=== PATIENT | female | born 1960 | race Caucasian/White ===

== ENCOUNTER 2016-12-16 00:49 | Emergency (ER) | payer OTHER ==
[~2016-12-16] VITALS: Ht 160 cm; Wt 86.2 kg
[~2016-12-16 00:49] MED LIST: CYCL-259 PO; ERGO500017 PO; ESTR0.5T PO; FOLIC ACID PO; OSTEOPOROSIS MED PO; SOLI5TAB2 PO; THYR30TA PO; VENL150C PO; VITA1CAP PO; cranberry PO
[2016-12-16 00:56] VITALS: BP 146/95
[2016-12-16] MEDS ORDERED: PHENAZOPYRIDINE 200 MG TABLET PO ONE (01:00)
[2016-12-16] MEDS ORDERED: CEFTRIAXONE 1,000 MG IM ONE (01:00)
[2016-12-16] MEDS ORDERED: FLUO40CA9 PO (01:06)
[2016-12-16] MEDS ORDERED: PHENAZOPYRIDINE 200 MG TABLET ONE (01:08)
[2016-12-16] MEDS ORDERED: CEFTRIAXONE 1,000 MG ONE (01:09)
== END 2016-12-16 01:24 | disposition home or self-care (01) ==
LOC: ED 00:57
DX: N30.00 Acute cystitis without hematuria (principal); F32.9 Major depressive disorder, single episode, unspecified; E07.9 Disorder of thyroid, unspecified; Z90.710 Acquired absence of both cervix and uterus; Z98.890 Other specified postprocedural states; Z90.49 Acquired absence of other specified parts of digestive tract
CPT/HCPCS: 81001; 87077; 87086; 87186; 96372; 99284; J0696

== ENCOUNTER → 2017-01-23 | Outpatient (CLI) | payer OTHER ==
[~2017-01-23] MED LIST changes: +FLUO40CA9 PO; +LIDOCAINE 1%, 20ML ONE; +MULTIHANCE 529 MG/ML, 5ML IV ONE; +OMNIPAQUE 300 MG/ML, 10ML VIAL ONE
== END | disposition home or self-care (01) ==
LOC: CFH 09:18
PROVIDERS: ATTEND Orthopaedic Surgery
DX: M25.451 Effusion, right hip (principal); M76.9 Unspecified enthesopathy, lower limb, excluding foot; N81.84 Pelvic muscle wasting; M24.151 Other articular cartilage disorders, right hip; Z98.890 Other specified postprocedural states
CPT/HCPCS: 73525; 73722; A9577; J3490; Q9967

== ENCOUNTER 2017-02-24 16:28 | Emergency (ER) | payer OTHER ==
[~2017-02-24] VITALS: Ht 160 cm; Wt 90.4 kg
[~2017-02-24 16:28] MED LIST changes: -LIDOCAINE 1%, 20ML ONE; -MULTIHANCE 529 MG/ML, 5ML IV ONE; -OMNIPAQUE 300 MG/ML, 10ML VIAL ONE
[2017-02-24] MEDS ORDERED: SODIUM CHLORIDE FLUSH 10ML SYR IVF ONE (17:00)
[2017-02-24 17:22] LABS: HEMATOCRIT 38.3 % (34.6-47.8); HEMOGLOBIN 12.8 g/dL (11.7-16.4); WHITE BLOOD COUNT 4.7 x10^3/uL (3.4-10)
[2017-02-24 17:32] LABS: ASPARTATE AMINO TRANSFERASE 22 U/L (15-37); BLOOD UREA NITROGEN 24 mg/dL (7-18)
[2017-02-24 17:38] LABS: IS PT STATUS REG ER OR PRE ER? YES
[2017-02-24] MEDS ORDERED: MAALOX/HYOSCYAMINE/LIDOCAINE 45 ML BTL ONE (19:00)
[2017-02-24] MEDS ORDERED: MAALOX/HYOSCYAMINE/LIDOCAINE 45 ML BTL PO ONE (19:00)
[2017-02-24 19:31] LABS: IS PT STATUS REG ER OR PRE ER? YES
[2017-02-24 20:03] VITALS: BP 140/97
== END 2017-02-24 20:05 | disposition home or self-care (01) ==
LOC: ED 19:59
DX: R07.89 Other chest pain (principal); Z90.710 Acquired absence of both cervix and uterus; Z90.49 Acquired absence of other specified parts of digestive tract; Z98.890 Other specified postprocedural states
CPT/HCPCS: 36415; 71010; 80053; 83690; 84484; 85025; 85610; 93005; 99285

== ENCOUNTER 2017-03-10 06:26 | Emergency (ER) | payer OTHER ==
[~2017-03-10] VITALS: Ht 160 cm; Wt 90.5 kg
[2017-03-10] MEDS ORDERED: SODIUM CHLORIDE 0.9% 1,000ML IVBOLUS ONE (07:00)
[2017-03-10] MEDS ORDERED: ENALAPRILAT 1.25 MG/ML, 2ML IV ONE (07:00)
[2017-03-10] MEDS ORDERED: SODIUM CHLORIDE FLUSH 10ML SYR IVF ONE (07:00)
[2017-03-10] MEDS ORDERED: NITR25CA2 PO (07:11)
[2017-03-10] MEDS ORDERED: UBID30CA9 PO (07:12)
[2017-03-10] MEDS ORDERED: ENALAPRILAT 1.25 MG/ML, 2ML ONE (07:21)
[2017-03-10 07:26] LABS: HEMATOCRIT 38.4 % (34.6-47.8); HEMOGLOBIN 12.6 g/dL (11.7-16.4); WHITE BLOOD COUNT 5.2 x10^3/uL (3.4-10)
[2017-03-10 07:40] LABS: BLOOD UREA NITROGEN 15 mg/dL (7-18)
[2017-03-10 07:46] LABS: IS PT STATUS REG ER OR PRE ER? YES
[2017-03-10] MEDS ORDERED: hydrALAzine 20 MG/ML, 1ML IV ONE (08:00)
[2017-03-10 08:08] VITALS: BP 166/89
[2017-03-10] MEDS ORDERED: KETOROLAC 30 MG/1 ML ONE (08:50)
[2017-03-10] MEDS ORDERED: KETOROLAC 30 MG/1 ML IVPush ONE (09:00)
[2017-03-10] MEDS ORDERED: ACETAMINOPHEN 650 MG/20.3 ML UDC ONE (14:20)
== END 2017-03-10 09:35 | disposition home or self-care (01) ==
LOC: ED 07:00
DX: I10 Essential (primary) hypertension (principal); F32.9 Major depressive disorder, single episode, unspecified
CPT/HCPCS: 36415; 80048; 82040; 84439; 84443; 84484; 85025; 93005; 96361; 96374; 96375; 99285; J1885; J7030

== ENCOUNTER 2017-03-25 01:45 | Emergency (ER) | payer OTHER ==
[~2017-03-25] VITALS: Ht 167.6 cm; Wt 85.0 kg
[~2017-03-25 01:45] MED LIST changes: +NITR25CA2 PO; +UBID30CA9 PO
[2017-03-25 02:05] VITALS: BP 158/113
[2017-03-25 02:21] LABS: HEMATOCRIT 35.3 % (34.6-47.8); HEMOGLOBIN 11.7 g/dL (11.7-16.4); WHITE BLOOD COUNT 5.7 x10^3/uL (3.4-10)
[2017-03-25 02:31] LABS: ASPARTATE AMINO TRANSFERASE 28 U/L (15-37); BLOOD UREA NITROGEN 25 mg/dL (7-18)
[2017-03-25 02:45] LABS: HIV 1&2 ANTIBODY SCREEN Nonreactive (Nonreactive); HIV-1 p24 ANTIGEN Nonreactive (Nonreactive)
[2017-03-25 10:25] LABS: HEP B SURF. AB 53.8 mIU/mL (0.0-10.0)
== END 2017-03-25 03:04 | disposition home or self-care (01) ==
LOC: ED 02:15
DX: Z77.21 Contact with and (suspected) exposure to potentially hazardous body fluids (principal); I10 Essential (primary) hypertension; Z90.49 Acquired absence of other specified parts of digestive tract; Z90.710 Acquired absence of both cervix and uterus
CPT/HCPCS: 36415; 80053; 85025; 86703; 86706; 86803; 87899; 99284; G0435

== ENCOUNTER → 2017-04-01 | Outpatient (CLI) | payer OTHER ==
[2017-04-01 07:44] LABS: BLOOD UREA NITROGEN 20 mg/dL (7-18)
[2017-04-01 08:09] LABS: ASPARTATE AMINO TRANSFERASE 19 U/L (15-37)
== END | disposition home or self-care (01) ==
LOC: LAB 07:18
PROVIDERS: ATTEND Family Medicine
DX: I10 Essential (primary) hypertension (principal); N28.9 Disorder of kidney and ureter, unspecified
CPT/HCPCS: 36415; 80053; 82607; 82746; 84439; 84443; 84481

== ENCOUNTER → 2017-05-02 | Outpatient (CLI) | payer OTHER ==
[~2017-05-02] MED LIST changes: +LISI-167 PO
== END ==
LOC: STAR 10:50
PROVIDERS: ATTEND Orthopaedic Surgery
DX: Z02.9 Encounter for administrative examinations, unspecified (principal)

== ENCOUNTER 2017-05-08 10:17 | Day surgery (SDC) | payer OTHER ==
[~2017-05-08] VITALS: Ht 160 cm; Wt 87.7 kg
[2017-05-08] MEDS ORDERED: ROPIvacaine/PF 0.5%, 30 ML ONE (10:24)
[2017-05-08] MEDS ORDERED: EPINEPHRINE TOPICAL SOLN 1 MG/ML, 30ML ONE (10:24)
[2017-05-08 10:43] VITALS: BP 132/87
[2017-05-08] MEDS ORDERED: TYLENOL PO (10:50)
[2017-05-08] MEDS ORDERED: LACTATED RINGERS 1,000 ML IV SCH (11:11)
[2017-05-08] MEDS ORDERED: FENTANYL PF 250 MCG/5ML ONE (11:28)
[2017-05-08] MEDS ORDERED: MIDAZOLAM 1 MG/ML, 2ML ONE (11:29)
[2017-05-08] MEDS ORDERED: PROPOFOL 50 ML ONE (11:33)
[2017-05-08] MEDS ORDERED: NEOSTIGMINE 1 MG/ML, 10ML ONE (12:23)
[2017-05-08] MEDS ORDERED: ROCURONIUM 10 MG/ML,10ML ONE (12:23)
[2017-05-08] MEDS ORDERED: GLYCOPYRROLATE 0.2MG/1ML, 5ML ONE (12:23)
[2017-05-08] MEDS ORDERED: PROPOFOL 10 MG/ML, 20ML ONE (12:29)
[2017-05-08] MEDS ORDERED: CEFAZOLIN 1,000 MG ONE (12:29)
[2017-05-08] MEDS ORDERED: DEXAMETHASONE 4 MG/ML, 1ML ONE (12:29)
[2017-05-08] MEDS ORDERED: ONDANSETRON 2MG/ML, 2ML ONE ×2 (12:29→14:04)
[2017-05-08] MEDS ORDERED: OXYcodone 5 MG/5 ML ORAL.SOL UDC PO PRN (12:30)
[2017-05-08] MEDS ORDERED: ONDANSETRON 2MG/ML, 2ML IVPush PRN (12:30)
[2017-05-08] MEDS ORDERED: ACETAMINOPHEN 325 MG TABLET PO PRN (12:30)
[2017-05-08] MEDS ORDERED: HYDROcodone/APAP 7.5-325MG/15ML UDC PO PRN (12:30)
[2017-05-08] MEDS ORDERED: ROPIvacaine/PF 0.5%, 30 ML INFIL ONE (13:03)
[2017-05-08] MEDS ORDERED: OXYcodone 5 MG/5 ML ORAL.SOL UDC ONE (13:43)
[2017-05-08] MEDS ORDERED: ACETAMINOPHEN 650 MG/20.3 ML UDC ONE (13:43)
[2017-05-08] MEDS ORDERED: FENTANYL PF 100 MCG/2ML ONE (13:45)
[2017-05-08] MEDS: FENTANYL PF 100 MCG/2ML IV PRN ×3 (13:46→14:02)
[2017-05-08] MEDS ORDERED: HYDROmorphone 2 MG/ML, 1ML ONE (13:54)
[2017-05-08] MEDS: HYDROmorphone 1 MG/ML, 1ML IV PRN ×3 (13:56→14:29)
[2017-05-08] MEDS ORDERED: MEPERIDINE/PF 50 MG/ML ONE (14:04)
[2017-05-08] MEDS ORDERED: MEPERIDINE/PF 25MG/0.5ML IVPush PRN (14:30)
== END 2017-05-08 15:45 | disposition home or self-care (01) ==
LOC: OUT 10:17
PROVIDERS: ATTEND Orthopaedic Surgery
DX: S73.191A Other sprain of right hip, initial encounter (principal); X58.XXXA Exposure to other specified factors, initial encounter; Y93.89 Activity, other specified; Y92.89 Other specified places as the place of occurrence of the external cause; Y99.8 Other external cause status
CPT/HCPCS: 29914; 73501; 76000; J0690; J1100; J1170; J2175; J2250; J2405; J2704; J2710; J2795; J3010; J7120; J0171; J3490

== ENCOUNTER → 2017-09-29 | Outpatient (CLI) | payer OTHER ==
[~2017-09-29] MED LIST changes: +TYLENOL PO
[2017-09-29 07:19] LABS: BASOPHILS # (AUTO) 0.05 x10^3/uL (0-0.1); BASOPHILS % (AUTO) 1 % (0-1); EOSINOPHILS # (AUTO) 0.05 x10^3/uL (0-0.4); EOSINOPHILS % (AUTO) 1 % (1-7); LYMPHOCYTES # (AUTO) 2.33 x10^3/uL (1-3.4); LYMPHOCYTES % (AUTO) 38 % (22-44); MD NO; MEAN CORPUSCULAR HEMOGLOBIN 25.9 pg (27.0-34.8); MEAN CORPUSCULAR HGB CONC 32.8 g/dL (32.4-35.8); MEAN PLATELET VOLUME 8.3 fL (7.4-10.4); MONOCYTES # (AUTO) 0.48 x10^3/uL (0.2-0.8); MONOCYTES % (AUTO) 8 % (2-9); NEUTROPHILS # (AUTO) 3.28 x10^3/uL (1.8-6.8); NEUTROPHILS % (AUTO) 53 % (42-75); PLATELET COUNT 222 x10^3/uL (130-400); RED BLOOD COUNT 4.48 x10^6/uL (3.82-5.3); RED CELL DISTRIBUTION WIDTH 13.8 % (9.6-15.2)
[2017-09-29 07:31] LABS: ALANINE AMINOTRANSFERASE 33 U/L (12-78); ALBUMIN 3.6 g/dL (3.4-5.0); ANION GAP 8 mmol/L (5-15); CALCIUM 8.3 mg/dL (8.5-10.1); CHLORIDE 104 mmol/L (98-107); CHOLESTEROL, TOTAL 238 mg/dL (140-239); CREATININE 1.07 mg/dL (0.55-1.02); HIGH-SENSITIVITY CRP 0.25 mg/dL (0.02-0.30)
[2017-09-29 07:42] LABS: ALKALINE PHOSPHATASE 100 U/L (45-117); BILIRUBIN,TOTAL 0.3 mg/dL (0.2-1.0); CHOL/HDL RATIO 2.9; FREE T4 (FREE THYROXINE) 0.91 ng/dL (0.76-1.46); HDL CHOL % 35 % (28-40); HDL CHOLESTEROL (DIRECT) 83 mg/dL (40-60); LDL CHOLESTEROL,CALCULATED 141 mg/dL (54-169); LDL/HDL RATIO 1.7 (0.5-3.0); THYROID STIMULATING HORMONE 0.826 mIU/L (0.358-3.740); TOTAL PROTEIN 7.4 g/dL (6.4-8.2); TRIGLYCERIDES 71 mg/dL (50-200); VLDL CHOLESTEROL 14 mg/dL (0-25)
== END | disposition home or self-care (01) ==
LOC: LAB 07:02
PROVIDERS: ATTEND Nurse Practitioner Family
DX: I10 Essential (primary) hypertension (principal); E78.5 Hyperlipidemia, unspecified; E03.9 Hypothyroidism, unspecified
CPT/HCPCS: 36415; 80053; 80061; 82043; 84439; 84443; 84481; 85025; 86141

== ENCOUNTER → 2018-05-08 | Outpatient (CLI) | payer OTHER ==
[2018-05-08 07:43] LABS: BASOPHILS # (AUTO) 0.05 x10^3/uL (0-0.1); BASOPHILS % (AUTO) 1 % (0-1); EOSINOPHILS # (AUTO) 0.42 x10^3/uL (0-0.4); EOSINOPHILS % (AUTO) 7 % (1-7); LYMPHOCYTES # (AUTO) 2.17 x10^3/uL (1-3.4); LYMPHOCYTES % (AUTO) 37 % (22-44); MD NO; MEAN CORPUSCULAR HEMOGLOBIN 24.5 pg (27.0-34.8); MEAN CORPUSCULAR HGB CONC 32.3 g/dL (32.4-35.8); MEAN PLATELET VOLUME 8.4 fL (7.4-10.4); MONOCYTES # (AUTO) 0.42 x10^3/uL (0.2-0.8); MONOCYTES % (AUTO) 7 % (2-9); NEUTROPHILS # (AUTO) 2.84 x10^3/uL (1.8-6.8); NEUTROPHILS % (AUTO) 48 % (42-75); PLATELET COUNT 260 x10^3/uL (130-400); RED BLOOD COUNT 4.86 x10^6/uL (3.82-5.3)
[2018-05-08 07:54] LABS: ALBUMIN 3.5 g/dL (3.4-5.0); ANION GAP 8 mmol/L (5-15); CALCIUM 8.6 mg/dL (8.5-10.1); CHLORIDE 104 mmol/L (98-107)
[2018-05-08 08:05] LABS: ALANINE AMINOTRANSFERASE 26 U/L (12-78); ALKALINE PHOSPHATASE 94 U/L (45-117); BILIRUBIN,TOTAL 0.4 mg/dL (0.2-1.0); CHOL/HDL RATIO 2.7; CHOLESTEROL, TOTAL 246 mg/dL (140-239); CREATININE 1.03 mg/dL (0.55-1.02); FREE T4 (FREE THYROXINE) 0.92 ng/dL (0.76-1.46); HDL CHOL % 37 % (28-40); HDL CHOLESTEROL (DIRECT) 91 mg/dL (40-60); HIGH-SENSITIVITY CRP 0.34 mg/dL (0.02-0.30); LDL CHOLESTEROL,CALCULATED 138 mg/dL (54-169); LDL/HDL RATIO 1.5 (0.5-3.0); THYROID STIMULATING HORMONE 0.977 mIU/L (0.358-3.740); TRIGLYCERIDES 87 mg/dL (50-200); VLDL CHOLESTEROL 17 mg/dL (0-25)
[2018-05-08 13:45] LABS: % IRON SATURATION 12 % (20-55); IRON LEVEL 55 mcg/dL (50-170); TOTAL IRON BINDING CAPACITY 474 mcg/dL (250-450)
== END | disposition home or self-care (01) ==
LOC: LAB 07:24
PROVIDERS: ATTEND Nurse Practitioner Family
DX: E78.5 Hyperlipidemia, unspecified (principal); I10 Essential (primary) hypertension; E03.9 Hypothyroidism, unspecified
CPT/HCPCS: 36415; 80053; 80061; 82043; 83540; 83550; 84439; 84443; 84481; 85025; 86141

== ENCOUNTER → 2019-04-27 | Outpatient (CLI) | payer OTHER ==
[2019-04-27 07:28] LABS: BASOPHILS # (AUTO) 0.04 x10^3/uL (0-0.1); BASOPHILS % (AUTO) 1 % (0-1); EOSINOPHILS # (AUTO) 0.07 x10^3/uL (0-0.4); EOSINOPHILS % (AUTO) 2 % (1-7); LYMPHOCYTES # (AUTO) 1.99 x10^3/uL (1-3.4); LYMPHOCYTES % (AUTO) 39 % (22-44); MD NO; MEAN CORPUSCULAR HEMOGLOBIN 25.3 pg (27.0-34.8); MEAN CORPUSCULAR HGB CONC 32.5 g/dL (32.4-35.8); MEAN CORPUSCULAR VOLUME 77.9 fL (80-100); MONOCYTES % (AUTO) 8 % (2-9); NEUTROPHILS % (AUTO) 51 % (42-75); PLATELET COUNT 210 x10^3/uL (130-400); RED BLOOD COUNT 4.88 x10^6/uL (3.82-5.3); RED CELL DISTRIBUTION WIDTH 18.2 % (9.6-15.2)
[2019-04-27 07:34] LABS: ALBUMIN 3.6 g/dL (3.4-5.0); ANION GAP 4 mmol/L (5-15); CALCIUM 8.7 mg/dL (8.5-10.1); CHLORIDE 107 mmol/L (98-107); CHOLESTEROL, TOTAL 245 mg/dL (140-239)
[2019-04-27 07:45] LABS: % IRON SATURATION 17 % (20-55); ALANINE AMINOTRANSFERASE 41 U/L (12-78); ALKALINE PHOSPHATASE 92 U/L (45-117); BILIRUBIN,TOTAL 0.3 mg/dL (0.2-1.0); CHOL/HDL RATIO 2.8; CREATININE 1.11 mg/dL (0.55-1.02); FREE T4 (FREE THYROXINE) 0.92 ng/dL (0.76-1.46); HDL CHOL % 36 % (28-40); HDL CHOLESTEROL (DIRECT) 88 mg/dL (40-60); IRON LEVEL 80 mcg/dL (50-170); LDL CHOLESTEROL,CALCULATED 136 mg/dL (54-169); LDL/HDL RATIO 1.5 (0.5-3.0); TOTAL IRON BINDING CAPACITY 463 mcg/dL (250-450); TOTAL PROTEIN 7.4 g/dL (6.4-8.2); TRANSFERRIN 331 mg/dL (200-360); TRIGLYCERIDES 105 mg/dL (50-200); VLDL CHOLESTEROL 21 mg/dL (0-25)
== END | disposition home or self-care (01) ==
LOC: LAB 07:08
PROVIDERS: ATTEND Nurse Practitioner Family
DX: D64.9 Anemia, unspecified (principal); E78.5 Hyperlipidemia, unspecified; E03.9 Hypothyroidism, unspecified; R53.83 Other fatigue
CPT/HCPCS: 36415; 80053; 80061; 82728; 83540; 83550; 84439; 84443; 84466; 84481; 85025

== ENCOUNTER 2020-05-12 16:12 | Emergency (ER) | payer OTHER ==
[~2020-05-12] VITALS: Ht 160 cm; Wt 88.4 kg
[2020-05-12] MEDS ORDERED: SODIUM CHLORIDE FLUSH 10ML SYR IVF ONE (17:00)
[2020-05-12 17:02] LABS: BASOPHILS % (AUTO) 1 % (0-1); EOSINOPHILS % (AUTO) 1 % (1-7); LYMPHOCYTES % (AUTO) 33 % (22-44); MEAN CORPUSCULAR HEMOGLOBIN 27.3 pg (27.0-34.8); MEAN CORPUSCULAR HGB CONC 33.2 g/dL (32.4-35.8); MEAN PLATELET VOLUME 8.4 fL (7.4-10.4); MONOCYTES % (AUTO) 8 % (2-9); NEUTROPHILS % (AUTO) 58 % (42-75); PLATELET COUNT 188 x10^3/uL (130-400); RED BLOOD COUNT 4.78 x10^6/uL (3.82-5.3); RED CELL DISTRIBUTION WIDTH 14.2 % (9.6-15.2)
[2020-05-12 17:04] LABS: MD NO
[2020-05-12 17:12] LABS: ALANINE AMINOTRANSFERASE 36 U/L (12-78); ALBUMIN 3.4 g/dL (3.4-5.0); ANION GAP 5 mmol/L (5-15); CALCIUM 9.1 mg/dL (8.5-10.1); CHLORIDE 108 mmol/L (98-107); CREATININE 0.93 mg/dL (0.55-1.02)
[2020-05-12 17:14] LABS: ALKALINE PHOSPHATASE 103 U/L (45-117); BILIRUBIN,TOTAL 0.4 mg/dL (0.2-1.0); TOTAL PROTEIN 6.9 g/dL (6.4-8.2)
--- NOTE | 2020-05-12 17:20 | NUR ---
PT AMBULATORY TO ROOM 6 W/ C/O RLQ AND PAIN STARTED YESTERDAY. PT STATES HER APPENDIX IS STILL IN PLACE. STATES MILD NAUSEA AT THIS TIME NO EMESIS. PT STATES PAIN IS TOLERABLE AT THIS TIME. PT RESTING ON GURNEY. NADN. LOW.
[2020-05-12] MEDS ORDERED: OMNIPAQUE 350 MG/ML, 100ML BOTTLE ONE (17:36)
[2020-05-12] MEDS ORDERED: SODIUM CHLORIDE 0.9% 1,000 ML IV ONE (18:00)
[2020-05-12 18:09] LABS: MICROSCOPIC INDICATED
[2020-05-12 18:20] VITALS: BP 155/90
--- NOTE | 2020-05-12 18:20 | NUR ---
PT RESTING ON GURNEY. NADN. LOW.
[2020-05-12] MEDS ORDERED: CEFDINIR 300 MG CAPSULE ONE (18:45)
[2020-05-12] MEDS ORDERED: CEFDINIR 300 MG CAPSULE PO/NG ONE (19:00)
== END 2020-05-12 18:55 | disposition home or self-care (01) ==
LOC: ED 17:59
DX: N39.0 Urinary tract infection, site not specified (principal); R10.31 Right lower quadrant pain; L98.8 Other specified disorders of the skin and subcutaneous tissue; I10 Essential (primary) hypertension; E07.9 Disorder of thyroid, unspecified; Z90.49 Acquired absence of other specified parts of digestive tract
CPT/HCPCS: 36415; 74177; 80053; 81001; 85025; 87077; 87086; 96360; 99285; J7030; Q9967; 87186

== ENCOUNTER → 2020-06-13 | Outpatient (CLI) | payer OTHER ==
[~2020-06-13] MED LIST changes: -CYCL-259 PO; +CYCL10TA2 PO
[2020-06-13 07:18] LABS: BASOPHILS % (AUTO) 1 % (0-1); EOSINOPHILS % (AUTO) 1 % (1-7); LYMPHOCYTES % (AUTO) 40 % (22-44); MEAN CORPUSCULAR HEMOGLOBIN 27.7 pg (27.0-34.8); MEAN CORPUSCULAR HGB CONC 33.5 g/dL (32.4-35.8); MEAN PLATELET VOLUME 8.2 fL (7.4-10.4); MONOCYTES % (AUTO) 8 % (2-9); NEUTROPHILS % (AUTO) 51 % (42-75); PLATELET COUNT 180 x10^3/uL (130-400); RED BLOOD COUNT 4.79 x10^6/uL (3.82-5.3); RED CELL DISTRIBUTION WIDTH 14.1 % (9.6-15.2)
[2020-06-13 07:19] LABS: MD NO
[2020-06-13 07:29] LABS: ALBUMIN 3.8 g/dL (3.4-5.0); ANION GAP 9 mmol/L (5-15); CALCIUM 8.6 mg/dL (8.5-10.1); CHLORIDE 105 mmol/L (98-107)
[2020-06-13 07:39] LABS: % IRON SATURATION 20 % (20-55); ALANINE AMINOTRANSFERASE 33 U/L (12-78); ALKALINE PHOSPHATASE 91 U/L (45-117); BILIRUBIN,TOTAL 0.4 mg/dL (0.2-1.0); CHOL/HDL RATIO 2.8; CHOLESTEROL, TOTAL 223 mg/dL (140-239); CREATININE 1.04 mg/dL (0.55-1.02); HDL CHOL % 36 % (28-40); HDL CHOLESTEROL (DIRECT) 81 mg/dL (40-60); IRON LEVEL 73 mcg/dL (50-170); LDL CHOLESTEROL,CALCULATED 129 mg/dL (54-169); LDL/HDL RATIO 1.6 (0.5-3.0); TOTAL IRON BINDING CAPACITY 374 mcg/dL (250-450); TOTAL PROTEIN 7.2 g/dL (6.4-8.2); TRIGLYCERIDES 67 mg/dL (50-200); VLDL CHOLESTEROL 13 mg/dL (0-25)
== END | disposition home or self-care (01) ==
LOC: LAB 07:05
PROVIDERS: ATTEND Internal Medicine
DX: Z00.00 Encounter for general adult medical examination without abnormal findings (principal); I10 Essential (primary) hypertension; E78.5 Hyperlipidemia, unspecified; E03.9 Hypothyroidism, unspecified; D50.9 Iron deficiency anemia, unspecified; L57.0 Actinic keratosis; Z82.49 Family history of ischemic heart disease and other diseases of the circulatory system
CPT/HCPCS: 36415; 80053; 80061; 82728; 83540; 83550; 84443; 85025

== ENCOUNTER → 2020-09-19 | Outpatient (CLI) | payer OTHER | END | disposition home or self-care (01) | LOC: RAD 06:59 | PROVIDERS: ATTEND Urology | DX: R39.198 Other difficulties with micturition (principal); N39.0 Urinary tract infection, site not specified | CPT/HCPCS: 76770 ==